=== PATIENT | female | born 1965 | race Caucasian/White ===

== ENCOUNTER 2017-06-01 15:20 | Emergency (ER) | payer MEDICARE, MEDICAID ==
[2017-06-01 16:16] VITALS: BP 108/69
[2017-06-01] MEDS ORDERED: Albuterol/Ipratropium NEB.SOL* Albuterol 2.5 MG/Ipratropium 0.5 MG 3 ML INH ONE (16:37)
--- NOTE | 2017-06-01 16:44 | UC ---
Respiratory Complaint HPI - HPI Summary HPI Summary: Pt here w/ persistent cough x 1 week. Productive at times and reports wheezing with chest tightness. She has asthma and has been trying her albuterol inhaler at home with minimal relief a of late. Denies URI sx and no fever, chills, N/V/ D. Sick contact at work - co-worker w/ cough x 3 weeks. Pt denies h/o recurrent bronchitis but admits she has had pneumonia in the past. Home temp is fixed by landlord and she's not sure what temp is - no humidifier. - History of Current Complaint Chief Complaint: UCGeneralIllness Stated Complaint: COUGH,WHEEZING Time Seen by Provider: 06/01/17 16:06 Hx Obtained From: Patient Hx Last Menstrual Period: 11/02/13 Pain Intensity: 9 - Allergies/Home Medications Allergies/Adverse Reactions: Allergies Allergy/AdvReac Type Severity Reaction Status Date / Time azithromycin AdvReac Vomiting Verified 06/01/17 16:03 Home Medications: Home Medications Dm/PE/Acetaminophen/Doxylamine [COLD & FLU MULTI-SYMPTOM (Liquid)] 1 udc PO DAILY PRN 06/01/17 [History Confirmed 06/01/17] Escitalopram Oxalate [Lexapro 10 mg] 10 mg PO BEDTIME 06/01/17 [History Confirmed 06/01/17] Pantoprazole Sodium 1 mg PO BID 06/01/17 [History Confirmed 06/01/17] Phenylephrine/Dm/Acetaminop/GG [Mucinex Fast-Max Cold Flu] 20 ml PO DAILY PRN [History Confirmed 06/01/17] PMH/Surg Hx/FS Hx/Imm Hx Previously Healthy: Yes Respiratory History: Asthma - Surgical History Surgical History: None - Social History Occupation: Employed Full-time Lives: With Family Alcohol Use: None Substance Use Type: None Smoking Status (MU): Never Smoked Tobacco - no 2nd hand smoke exposure Review of Systems Constitutional: Negative Skin: Negative Eyes: Negative ENT: Negative Respiratory: Cough Cardiovascular: Negative Gastrointestinal: Negative Motor: Negative Neurovascular: Negative Musculoskeletal: Negative Neurological: Negative Psychological: Anxious Is Patient Immunocompromised?: No All Other Systems Reviewed And Are Negative: Yes Physical Exam Triage Information Reviewed: Yes Appearance: Well-Appearing, No Pain Distress - however pt does cough easily with talking - breathing well otherwise, Obese Vital Signs: Initial Vital Signs Temp 99.6 F 06/01/17 16:10 Pulse 78 06/01/17 16:10 Resp 28 06/01/17 16:10 BP 108/69 06/01/17 16:10 Pulse Ox 99 06/01/17 16:10 Vital Signs Reviewed: Yes Eye Exam: Normal ENT Exam: Normal ENT: Positive: Normal ENT inspection, Hearing grossly normal, Pharynx normal - mucosa moist, TMs normal, Uvula midline. Negative: Nasal congestion, Nasal drainage, Trismus, Muffled voice Neck exam: Normal Neck: Positive: Supple, Nontender, No Lymphadenopathy Respiratory: Positive: Wheezing - subtle, Other: - pt's chest is mostly clear w subtle wheezing but apepars tight as she is only taking shallow breathes and coughing frequently. Negative: Stridor Cardiovascular Exam: Normal Cardiovascular: Positive: RRR, No Murmur, Other: - no LE edema Abdominal Exam: Normal Musculoskeletal Exam: Normal Musculoskeletal: Positive: Strength Intact Neurological Exam: Normal Psychological Exam: Normal Skin Exam: Normal UC Diagnostic Evaluation - Laboratory O2 Sat by Pulse Oximetry: 99 Re-Evaluation - Re-Evaluation First Eval Change: Improved - breathing easier, deeper breathes w/o coughing, air moving more throughout chest - no wheezing, no rhales, no rhonchi - pt appears more relaxed, coughing less Respiratory Course/Dx - Course Course Of Treatment: CXR w/o acute findings - Differential Dx/Diagnosis Provider Diagnoses: Asthma exacerbation Discharge - Discharge Plan Condition: Stable Disposition: HOME Prescriptions: Albuterol HFA INHALER* [Ventolin HFA Inhaler*] 2 puff INH Q4H PRN #1 mdi PRN Reason: Cough Patient Education Materials: Asthma (ED) Referrals: Mimi Tierney MD [Primary Care Provider] - Additional Instructions: You do not appear to have pneumonia today however your asthma has been triggered. It is important that you rest and avoid triggers until improvement. Continue to use albuterol inhaler every 4-6 hours until cough subsides. You may try the following as well: Perform nasal wash/netti pot 2 x day with 8 ounces of warm water + 1/4 teaspoon of salt or saline nasal spray as needed Perform throat gargles with warm salt water as needed Drink 60+ ounces of water daily Sleep 8+ hours per night Avoid Dairy and sugar Drink hot herbal/decaf tea with lemon & honey Drink chicken broth (preferably organic, free range chicken) Use a humidifier in your house, but especially near bed at night. You may also keep home temperature at 68F to 65F to reduce risk of bronchospasm. Try a facial steam and humidification Avoid smoke, candles, perfumes/colonge, air fresheners, scented lotions, etc Consider taking Vitamin D3 5,000iu and Vitamin C 1,000mg every day during illness
--- NOTE | 2017-06-01 16:56 | RAD ---
INDICATION: Productive cough COMPARISON: June 17, 2012 TECHNIQUE: PA and lateral dual-energy views were obtained. FINDINGS: Bones/Soft Tissues: There are no acute bony findings. Cardiomediastinal: The cardiomediastinal silhouette is normal. Lungs: There are no infiltrates. Pleura: There are no pleural effusions. Other: None IMPRESSION: NO ACTIVE DISEASE.
== END 2017-06-01 17:45 | disposition home or self-care (01) ==
LOC: UCCORT 15:20
DX: J45.901 Unspecified asthma with (acute) exacerbation (principal); R05 Cough; Z88.1 Allergy status to other antibiotic agents
CPT/HCPCS: 71046; 99212; A9270-GY; G0463

== ENCOUNTER 2018-10-10 14:19 | Emergency (ER) | payer MEDICARE, MEDICAID ==
--- OUTSIDE RECORDS SUMMARY | 2018-10-10 14:38 | XMS REPORT | Continuity of Care Document ---
:1965 External Reference #:[id number] Author Name Celio Odell Care Team Providers Name Role Phone Becca Lopez PA Care Team Information [employer] Reclaimer Unavailable Becca Lopez PA Primary Care Physician Unavailable Payers Date Identification Numbers Payment Provider Subscriber Effective: 1983 Policy Number: [id number] Medicare Kaylyn Henriquez PayID: [id number] [address] [place] [address] Policy Number: [id number] Medicaid Kaylyn Henriquez Group Name: 1 [address] PayID: [id number] [place] [address] Effective: 1999 Policy Number: [id number] Manuelanson Henriquez Expires: 1999 PayID: [id number] [address] [place] [address] Problems Active Problems Provider Date Sjogren's syndrome Gunnar Dahl M.D. Onset: 06/25/2012 Immunological Findings Nonspecified Other & Gunnar Dahl M.D. Onset: 2012 Unspecified Multiple joint pain Gunnar Dahl M.D. Onset: 08/21/2012 Medications Senior Pastor (Current) Use Gunnar Dahl M.D. Onset: 08/21/2012 Encounter Epilepsy Eneida Ferrell M.D. Onset: 10/13/2014 Taking medication Robert Frye M.D. Onset: 10/10/2018 Complex partial epileptic seizure Robert Frye M.D. Onset: 09/13/2017 Family History Date Family Member(s) Observation Comments General Heart Disease General Depression Father Depression Father due to Suicide () Mother Heart Disease Social History Type Date Description Comments Sex Unknown Marital Status Lives With Spouse Occupation Disabled Tobacco Use Start: Unknown Never Smoked Cigarettes Smoking Status Reviewed: 10/10/18 Never Smoked Cigarettes ETOH Use Denies alcohol use Tobacco Use Start: Unknown Patient has never smoked Recreational Drug Use Denies Drug Use Exercise Type/Frequency Exercises regularly Allergies, Adverse Reactions, Alerts Active Allergies Reaction Severity Comments Date Zithromax 06/25/2012 Medications Active Medications SIG Qnty Indications Ordering Provider Date Keppra 1 by mouth twice a 60tabs G40.209 Robert Frye, 09/13/2017 500mg Tablets day M.D. Proair HFA 2 puffs po q4h prn 1units Other Ordering 06/25/2012 Provider 108(90Base) mcg/Act Aerosol Carbamazepine 10ml by mouth two 600cc Robert Frye, 06/04/2012 times a day M.D. 100mg/5ML Suspension Trazodone HCL 1 tab by mouth at Unknown 50mg bedtime Tablets Zolpidem Tartrate take 1 tablet by Unknown mouth at bedtime if 10mg Tablets needed Escitalopram Oxalate take 1 tablet by Unknown mouth once daily 10mg Tablets Pantoprazole Sodium 1 by mouth bid Unknown 20mg Tablets DR Mendes For Her 1 by mouth every Unknown day Capsules Lactulose 30 milliliters by Unknown 20GM/30ML mouth once a dayfor Solution 1 week, then as needed severe constipation Caltrate 600+D 1 by mouth twice a Unknown Unit day Chewtabs Levothyroxine Sodium 1 by mouth every 30tabs Unknown day 50mcg Tablets Loratadine 12 tsp as needed @ Unknown Liquid bedtime Tylenol Unknown 500mg/15ML Liquid History Medications Voltaren apply to 1tubes 719.49 Meche Cyr, 02/12/2013 - 1% Gel affected area MONITOR CAR OPERATOR 12/20/2015 bid, prn Hydroxychloroquine 1 tab po bid 180tabs 710.2 Meche Cyr, 08/21/2012 - Sulfate MONITOR CAR OPERATOR 12/20/2015 200mg Tablets Symbicort 2 puffs bid 1monthsu Other Ordering 06/25/2012 - 80-4.5mcg/Act Aerosol rinse mouth Provider 12/20/2015 after using Miralax 17 gm qd prn 1Mon Other Ordering 06/25/2012 - [id number] Packet Provider 10/12/2014 Nexium 1 by mouth Unknown - 40mg Capsules DR every day 12/20/2015 Immunizations CPT Code Status Date Vaccine Lot # [id number] Given 01/23/2003 Influenza Virus 3Yrs & Over 10979 Given 03/06/2002 Influenza Virus 3Yrs & Over 44482 Given 01/12/1999 Flu Vaccine 54382 Given 02/11/1997 Flu Vaccine 07134 Given 02/07/1996 Flu Vaccine 61899 Given 02/13/1995 Flu Vaccine 18568 Given 07/18/1994 Tetanus Toxoid Adsorbed, For Intramuscular Use Vital Signs Date Vital Result Comment 10/10/2018 1:40pm Height 63 inches 5'3" Weight 223.00 lb Heart Rate 64 /min BP Systolic 122 mmHg BP Diastolic 84 mmHg BMI (Body Mass Index) 39.5 kg/m2 09/13/2017 1:35pm Height 63 inches 5'3" Weight 223.12 lb Heart Rate 92 /min BP Systolic Sitting 114 mmHg BP Diastolic Sitting 64 mmHg Respiratory Rate 16 /min O2 % BldC Oximetry 94 % BMI (Body Mass Index) 39.5 kg/m2 12/21/2015 1:41pm Height 63 inches 5'3" Weight 208.00 lb Heart Rate 76 /min BP Systolic Sitting 110 mmHg BP Diastolic Sitting 76 mmHg Respiratory Rate 18 /min O2 % BldC Oximetry 98 % BMI (Body Mass Index) 36.8 kg/m2 10/13/2014 1:44pm Height 63 inches 5'3" Weight 196.00 lb Heart Rate 64 /min BP Systolic Sitting 120 mmHg BP Diastolic Sitting 78 mmHg Respiratory Rate 20 /min BMI (Body Mass Index) 34.7 kg/m2 02/12/2013 10:28am Height 63 inches 5'3" Weight 200.25 lb Heart Rate 68 /min BP Systolic Sitting 126 mmHg BP Diastolic Sitting 72 mmHg BMI (Body Mass Index) 35.5 kg/m2 08/21/2012 1:16pm Height 63 inches 5'3" Weight 198.00 lb Heart Rate 76 /min BP Systolic Sitting 126 mmHg BP Diastolic Sitting 72 mmHg BMI (Body Mass Index) 35.1 kg/m2 06/25/2012 11:21am Height 63 inches 5'3" Weight 199.00 lb Heart Rate 80 /min BP Systolic Sitting 112 mmHg BP Diastolic Sitting 66 mmHg BMI (Body Mass Index) 35.2 kg/m2 Results Test Date Facility Test Result H/L Range Note Laboratory test 08/17/2017 [facility] Magnesium 2.0 mg/dL N 1.9-2.[address] [place] [address] [phone] CBC Auto Diff 08/17/2017 [facility] White Blood 6.9 10^3/uL N 3.5-10.[address] [place] [address] [phone] Red Blood Count 4.34 10^6/uL N 4.0-5.4 Hemoglobin 13.0 g/dL N 12.0-16.0 Hematocrit 38 % N 35-47 Mean Corpuscular Volume 87 fL N 80-97 Mean Corpuscular Hemoglobin 30 pg N 27-31 Mean Corpuscular HGB Conc 34 g/dL N 31-36 Red Cell Distribution Width 14 % N 10.5-15 Platelet Count 309 10^3/uL N 150-450 Mean Platelet Volume 7.9 um3 N 7.4-10.4 Abs Neutrophils 4.2 10^3/uL N 1.5-7.7 Abs Lymphocytes 1.9 10^3/uL N 1.0-4.8 Abs Monocytes 0.4 10^3/uL N 0-0.8 Abs Eosinophils 0.3 10^3/uL N 0-0.6 Abs Basophils 0.1 10^3/uL N 0-0.2 Abs Nucleated RBC 0 10^3/uL Granulocyte % 61.2 % N 38-83 Lymphocyte % 27.8 % N 25-47 Monocyte % 5.1 % N 0-7 Eosinophil % 4.7 % N 0-6 Basophil % 1.2 % N 0-2 Nucleated Red Blood Cells % 0 Comp Metabolic Panel 08/17/2017 [facility] Sodium 139 mmol/L N 139-[address] [place] [address] [phone] Potassium 4.0 mmol/L N 3.5-5.0 Chloride 105 mmol/L N 101-111 Co2 Carbon Dioxide 26 mmol/L N 22-32 Anion Gap 8 mmol/L N 2-11 Glucose 103 mg/dL High 70-100 Blood Urea Nitrogen 7 mg/dL N 6-24 Creatinine 0.71 mg/dL N 0.51-0.95 BUN/Creatinine Ratio 9.9 N 8-20 Calcium 9.3 mg/dL N 8.6-10.3 Total Protein 7.4 g/dL N 6.4-8.9 Albumin 4.4 g/dL N 3.2-5.2 Globulin 3.0 g/dL N 2-4 Albumin/Globulin Ratio 1.5 N 1-3 Total Bilirubin 0.40 mg/dL N 0.2-1.0 Alkaline Phosphatase 55 U/L N 34-104 Alt 14 U/L N 7-52 Ast 17 U/L N 13-39 Egfr Non- 85.8 >60 Egfr 110.3 >60 1 Laboratory 08/17/2017 [facility] Carbamazepine < 2.0 Low 4.0- 12.0 test finding [address] (Tegretol) g/[place] [address] [phone] Comp Metabolic 12/21/2015 [facility] Sodium 137 mmol/L N 133- [address] [place] [address] [phone] Potassium 3.9 mmol/L N 3.5-5.0 Chloride 103 mmol/L N 101-111 Co2 Carbon Dioxide 29 mmol/L N 22-32 Anion Gap 5 mmol/L N 2-11 Glucose 78 mg/dL N 70-100 Blood Urea Nitrogen 6 mg/dL N 6-24 Creatinine 0.70 mg/dL N 0.51-0.95 BUN/Creatinine Ratio 8.6 N 8-20 Calcium 8.8 mg/dL N 8.6-10.3 Total Protein 7.2 g/dL N 6.4-8.9 Albumin 4.3 g/dL N 3.2-5.2 Globulin 2.9 g/dL N 2-4 Albumin/Globulin Ratio 1.5 N 1-3 Total Bilirubin 0.30 mg/dL N 0.2-1.0 Alkaline Phosphatase 48 U/L N 34-104 Alt 12 U/L N 7-52 Ast 14 U/L N 13-39 Egfr Non- 87.9 N >60 Egfr 113.0 N >60 2 CBC Auto Diff 12/21/2015 [facility] White Blood 7.2 10^3/uL N 3.5-10.[address] [place] [address] [phone] Red Blood Count 4.26 10^6/uL N 4.0-5.4 Hemoglobin 12.5 g/dL N 12.0-16.0 Hematocrit 37 % N 35-47 Mean Corpuscular Volume 87 fL N 80-97 Mean Corpuscular Hemoglobin 29 pg N 27-31 Mean Corpuscular HGB Conc 34 g/dL N 31-36 Red Cell Distribution Width 14 % N 10.5-15 Platelet Count 314 10^3/uL N 150-450 Mean Platelet Volume 8 um3 N 7.4-10.4 Abs Neutrophils 4.2 10^3/uL N 1.5-7.7 Abs Lymphocytes 2.2 10^3/uL N 1.0-4.8 Abs Monocytes 0.4 10^3/uL N 0-0.8 Abs Eosinophils 0.4 10^3/uL N 0-0.6 Abs Basophils 0 10^3/uL N 0-0.2 Abs Nucleated RBC 0 10^3/uL N Granulocyte % 58.8 % N 38-83 Lymphocyte % 30.3 % N 25-47 Monocyte % 5.5 % N 1-9 Eosinophil % 5.0 % N 0-6 Basophil % 0.4 % N 0-2 Nucleated Red Blood Cells % 0 N Urine Culture And 06/25/2012 [facility] Urine Culture (SEE [address] NOTE) [place] [address] [phone] Laboratory test 06/25/2012 [facility] Rheumatoid 17 IU/mL Abnormal <15 [address] [place] [address] [phone] Cyclic Citrullinated Pept IgG <15.6 U 5 Histone Antibodies <0.5 U 6 Urinalysis W/Microscopic 06/25/2012 [facility] Urine Color Yellow [address] [place] [address] [phone] Urine Appearance Clear Urine Specific [place] 1.008 Low 1.010-1.030 Urine Esterase 3+ Abnormal Negative Urine Nitrate Negative Negative Urine Urobilinogen Negative E.U./dL Negative Urine Protein Negative mg/dL Negative Urine pH 6.0 5-9 Urine Blood 2+ Abnormal Negative Urine Ketones Negative mg/dL Negative Urine Bilirubin Negative Negative Urine Glucose Negative mg/dL Negative Urine WBC 3+ (>30 /hpf) None Seen Urine RBC 1+ (<3 /hpf) None Seen Urine Epithelial Cells 2+ Squamous /hpf None Seen Bacteria Urine 2+ None Seen Laboratory test 06/25/2012 [facility] C Reactive 0.6 mg/dL High Less than finding [address] Protein 0.5 [place] [address] [phone] Anti Ssa/Ro Antibody <0.2 U 7 SS-B/La Antibody 2.8 U Abnormal 8 Comp Metabolic Panel 06/25/2012 [facility] Sodium 138 mmol/L 133-[address] [place] [address] [phone] Potassium 3.9 mmol/L 3.5-5.0 Chloride 104 mmol/L 101-111 Co2 Carbon Dioxide 29.0 mmol/L 22-32 Anion Gap 5.0 mmol/L 2-11 Glucose 86 mg/dL 70-100 Blood Urea Nitrogen 4 mg/dL Low 6-24 Creatinine 0.60 mg/dL 0.50-1.40 BUN/Creatinine Ratio 6.7 Low 8-20 Calcium 9.5 mg/dL 8.1-9.9 Total Protein 6.9 g/dL 6.2-8.1 Albumin 4.0 g/dL 3.6-5.4 Globulin 2.9 g/dL 2-4 Albumin/Globulin Ratio 1.4 1-3 Total Bilirubin 0.3 mg/dL Low 0.4-1.5 Alkaline Phosphatase 40 U/L 30-110 Alt 14 U/L 14-54 Ast 15 U/L 12-42 Egfr Non- 106.3 >60 Egfr 136.6 >60 9 CBC With 06/25/2012 [facility] White Blood 6.1 10^3/uL 4.8- 10.8 Manual Diff [address] [place] [address] [phone] Red Blood Count 3.85 10^6/uL Low 4.0-5.4 Hemoglobin 12.4 g/dL 12.0-16.0 Hematocrit 35 % 35-47 Mean Corpuscular Volume 92 fL 80-97 Mean Corpuscular Hemoglobin 32 pg High 27-31 Mean Corpuscular HGB Conc 35 g/dL 31-36 Red Cell Distribution Width 15 % 10.5-15 Platelet Count 310 10^3/uL 150-450 Mean Platelet Volume 8 um3 7.4-10.4 Abs Neutrophils 3.7 10^3/uL 1.5-7.7 Abs Lymphocytes 1.7 10^3/uL 1.0-4.8 Abs Monocytes 0.3 10^3/uL 0-0.8 Abs Eosinophils 0.2 10^3/uL 0-0.6 Abs Basophils 0.1 10^3/uL 0-0.2 Abs Nucleated RBC 0 10^3/uL Neutrophil % 59 % 38-83 Lymphocytes % 34 % 25-47 Monocytes % 3 % 0-13 Eosinophils % 4 % 0-6 RBC Morphology Normal Normal 1 Because ethnic data is not always readily available, this report includes an eGFR for both -Americans and non- Americans. The National Kidney Disease Education Program (NKDEP) does not endorse the use of the MDRD equation for patients that are not between the ages of 18 and 70, are , have extremes of body size, muscle mass, or nutritional status, or are non- or non-. According to the National Kidney Foundation, irrespective of diagnosis, the stage of the disease is based on the level of kidney function: Stage Description GFR(mL/min/1.73 m(2)) 1 Kidney damage with normal or decreased GFR 90 2 Kidney damage with mild decrease in GFR 60-89 3 Moderate decrease in GFR 30-59 4 Severe decrease in GFR 15-29 5 Kidney failure <15 (or dialysis) 2 Because ethnic data is not always readily available, this report includes an eGFR for both -Americans and non- Americans. The National Kidney Disease Education Program (NKDEP) does not endorse the use of the MDRD equation for patients that are not between the ages of 18 and 70, are , have extremes of body size, muscle mass, or nutritional status, or are non- or non-. According to the National Kidney Foundation, irrespective of diagnosis, the stage of the disease is based on the level of kidney function: Stage Description GFR(mL/min/1.73 m(2)) 1 Kidney damage with normal or decreased GFR 90 2 Kidney damage with mild decrease in GFR 60-89 3 Moderate decrease in GFR 30-59 4 Severe decrease in GFR 15-29 5 Kidney failure <15 (or dialysis) 3 RUN DATE: 06/27/12 [facility] LAB LIVE PAGE 1 RUN TIME: [address] [place], [place] [address] Specimen Inquiry Name: KAYLYN HENRIQUEZ : [address]: Gunnar Dahl MD Acct: [id number] Unit: [id number] AGE: 47 Location: [facility] Re06/25/12 SEX: F Status: REG REF SPEC: [id number] GUILLERMO: 06/25/[address] [facility] [address]: Gunnar Dahl MD REQ: [id number] RECD: 06/25/12 STATUS: ANAM DEE DR: Rajesh Lowery MD _ SOURCE: URINE SPDESC: ORDERED: Urine Culture QUERIES: Medent Number [id number] Procedure Result Verified Site Urine Culture Final 06/27/12- 1149 ML Organism 1 NORMAL HORTENSIA [place] Count 50-75,000 (Many) CFU/ML END OF REPORT * ML=Testing performed at [facility] DEPARTMENT OF PATHOLOGY, [address] [place] [address] Baljeet Rose M.D. Director [facility] Permit #[id number] 4 Test Performed by: [address] [address] Folder Tier: Khanh Anders III, M.D. 5 -- REFERENCE VALUE -- <20.0 (Negative) Test Performed by: [address] [address] Folder Tier: Khanh Anders III, M.D. 6 -- REFERENCE VALUE -- <1.0 (Negative) Test Performed by: [address] [address] Folder Tier: Khanh Anders III, M.D. 7 -- REFERENCE VALUE -- <1.0 (Negative) Test Performed by: [address] [address] Folder Tier: Khanh Anders III, M.D. 8 Interpretation: Positive (>=1.0) -- REFERENCE VALUE -- <1.0 (Negative) Test Performed by: [facility] - [address] [address] Folder Tier: Khanh Anders III, M.D. 9 Because ethnic data is not always readily available, this report includes an eGFR for both -Americans and non- Americans. The National Kidney Disease Education Program (NKDEP) does not endorse the use of the MDRD equation for patients that are not between the ages of 18 and 70, are , have extremes of body size, muscle mass, or nutritional status, or are non- or non-. According to the National Kidney Foundation, irrespective of diagnosis, the stage of the disease is based on the level of kidney function: Stage Description GFR(mL/min/1.73 m(2)) 1 Kidney damage with normal or decreased GFR 90 2 Kidney damage with mild decrease in GFR 60-89 3 Moderate decrease in GFR 30-59 4 Severe decrease in GFR 15-29 5 Kidney failure <15 (or dialysis) Encounters Type Date Location Provider Dx Diagnosis Office Visit 09/13/2017 Mark AnthonyGisselle Frye, G40.209 Local- rel symptc 1:45p [facility] epi w cmplx prt [employer] Sales [employer] Manager seiz,not ntrct,w/o stat epi Office Visit 12/21/2015 Ralf Ferrell, G40.209 Local- rel symptc 1:45p [facility] epi w cmplx prt [employer] Sales And Service Manager seiz,not ntrct,w/o stat epi Z79.899 Other jail (current) drug therapy Office 10/13/2014 Ralf Camilo 345.40 Local-Related Visit 1:45p [facility] Epilepsy W/O [employer] Sales And Service Manager Mention Of Intractable Epilepsy Office 10/07/2013 Ralf Camilo 345.90 Epilepsy Unspec Visit 2:00p [facility]rell W/O Intractable [employer] Manager 319 Unspecified Intellectual Disabilities Office Visit 02/12/2013 10:20a Rheumatology Meche Cyr, 710.2 [facility] MONITOR CAR OPERATOR 795.79 Immunological Findings Nonspec Other & Unspec 719.49 Pain Joint Multiple Sites V58.69 Medications Retirement (Current) Use Encounter Office Visit 12/03/2012 [place]/Shazia Camilo 345.90 Epilepsy Unspec 9:45a [facility]rell W/O Intractable [facility] 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 Other 319 Unspecified Intellectual Disabilities Office Visit 08/21/2012 1:00p Rheumatology Gunnar Dahl, 710.2 [facility] [place] 795.79 Immunological Findings Nonspec Other & Unspec 719.49 Pain Joint Multiple Sites V58.69 Medications Retirement (Current) Use Encounter Office Visit 06/25/2012 11:00a Rheumatology Gunnar Dahl, 710.2 [facility] [place] 795.79 Immunological Findings Nonspec Other & Unspec Office Visit 06/04/2012 [place] 780.39 Convulsions 11:45a [facility] Other [facility] Office Visit 11/10/2011 Ralf Camilo 780.39 Convulsions 12:45p [facility] Ferrell Other [facility] Plan of Treatment Future Appointment(s):04/17/2019 2:45 pm - Robert Frye M.D. at [facility]10/10/2018 - Robert Frye M.D.G40.209 Localization-related (focal) (partial) symptomatic epilepsyFollow up:Follow up in 6 erwziuL74.899 Other jail (current) drug therapy
[2018-10-10 14:50] VITALS: BP 100/60
--- NOTE | 2018-10-10 15:05 | UC ---
UC General HPI - HPI Summary HPI Summary: pt is c/o -pain to her "tailbone" for about 2 months. she denies hx of injury. no fever, abdominal pain, numb/weak extremities, bowel/bladder dysfunction or saddle anesthesia. taking some motrin without relief. - History of Current Complaint Chief Complaint: UCBackPain Stated Complaint: LOW BACK PAIN Time Seen by Provider: 10/10/18 14:41 Hx Obtained From: Patient Hx Last Menstrual Period: 11/02/13 Timing: Constant Pain Intensity: 9 - Allergy/Home Medications Allergies/Adverse Reactions: Allergies Allergy/AdvReac Type Severity Reaction Status Date / Time azithromycin AdvReac Vomiting Verified 06/01/17 16:03 Home Medications: Home Medications Montelukast Sodium TAB* [Singulair TAB*] 5 mg PO DAILY 10/10/18 [History Confirmed 10/10/18] PMH/Surg Hx/FS Hx/Imm Hx - Additional Past Medical History Additional PMH: allergies Respiratory History: Asthma Psychological History: Depression - Surgical History Surgical History: None - Family History Known Family History: Positive: Non-Contributory - Social History Alcohol Use: None Substance Use Type: None Smoking Status (MU): Never Smoked Tobacco Review of Systems All Other Systems Reviewed And Are Negative: Yes Constitutional: Negative: Fever, Chills Skin: Negative: Rash Gastrointestinal: Negative: Abdominal Pain Musculoskeletal: Negative: Decreased ROM Neurological: Negative: Weakness, Paresthesia, Numbness Physical Exam Triage Information Reviewed: Yes Appearance: Well-Appearing Vital Signs: Initial Vital Signs Temp 98 F 10/10/18 14:42 Pulse 64 10/10/18 14:42 Resp 16 10/10/18 14:42 BP 100/60 10/10/18 14:42 Pulse Ox 99 10/10/18 14:42 Vital Signs Reviewed: Yes Eyes: Positive: Conjunctiva Clear Neck: Positive: Supple, Nontender, No Lymphadenopathy Respiratory: Positive: Lungs clear, No respiratory distress Cardiovascular: Positive: RRR Abdomen Description: Positive: Nontender. Negative: Pulsatile Mass Musculoskeletal: Positive: Other: - neck: c-spine non tender. thoracic and lumbar spine is non tender. sacrum non tender. tender over coccyx area but no rash, swelling or fluctunce. ROM is intact throughout. s/v/m intact x4. Normal gait. Neurological: Positive: Alert Psychological: Positive: Age Appropriate Behavior Skin Exam: Normal Diagnostics - Radiology No standard instances Radiology Interpretation Completed By: Radiologist - REPORT AND IMPRESSION: #. Bowel contents partially obscures the coccyx on the AP view. #. Grade 2 retrolisthesis at the S2-S3 level is age indeterminate. Alignment is otherwise normal. #. No fracture evident. #. Unremarkable soft tissue contours accounting for body habitus. Course/Dx - Differential Dx - Multi-Symptom Differential Diagnoses: Other - no fx and no sign of infection - Diagnoses Provider Diagnosis: Coccydynia Discharge - Sign-Out/Discharge Documenting (check all that apply): Patient Departure All imaging exams completed and their final reports reviewed: Yes - Discharge Plan Condition: Stable Disposition: HOME Prescriptions: Naproxen [Naprosyn 500 mg tab] 500 mg PO BID 5 Days #10 tablet Patient Education Materials: Coccyx Injury (ED) Referrals: Cate Ortega [Primary Care Provider] - 7 Days Additional Instructions: obtain a donut pillow to sit on - Billing Disposition and Condition Condition: STABLE Disposition: Home
== END 2018-10-10 15:35 | disposition home or self-care (01) ==
LOC: UCCORT 14:19
DX: M53.3 Sacrococcygeal disorders, not elsewhere classified (principal); J45.909 Unspecified asthma, uncomplicated
CPT/HCPCS: 72220; 99212; G0463